=== PATIENT | female | born 1930 | race Caucasian/White ===

== ENCOUNTER 2019-01-23 18:13 | Observation (INO) | payer OTHER ==
[2019-01-23 18:32] VITALS: BMI 22.6
[2019-01-23 19:52] LABS: Absolute Lymphocytes (CBC) 1.2 K/uL (0.7-4.9); Basophils % 0.5 % (0-1.3); Hematocrit 35.5 % (36.0-45.0); Lymphocytes % 19.1 % (15.3-44.8); MPV 8.6 fL (7.6-11.3); RBC Red Blood Cell Count 3.88 M/uL (3.86-4.86)
[2019-01-23 20:16] LABS: ALT/SGPT 81 U/L (12-78); AST/SGOT 89 U/L (15-37); Albumin 3.5 g/dL (3.4-5.0); Alkaline Phosphatase 114 U/L (45-117); BUN Blood Urea Nitrogen 21 mg/dL (7-18); Bicarbonate 27 mmol/L (21-32); Bilirubin Total 0.5 mg/dL (0.2-1.0); CKMB Creatine Kinase MB 1.1 ng/mL (0.3-3.6); Creatine Phosphokinase 42 U/L (26-192); Glucose Level 101 mg/dL (74-106); Magnesium 1.9 mg/dL (1.8-2.4); Potassium 3.8 mmol/L (3.5-5.1); Sodium Level 140 mmol/L (136-145); Troponin I < 0.02 ng/mL (0.0-0.045)
--- NOTE | 2019-01-23 20:24 | RAD REPORT ---
EXAM DESCRIPTION: Margie Vargas (2 Views)01/23/2019 7:54 pm CLINICAL HISTORY: Chest pain COMPARISON: 2018 FINDINGS: The lungs appear clear of acute infiltrate. The heart is normal size IMPRESSION: No acute abnormalities displayed
[2019-01-23] MEDS ORDERED: ENOXAPARIN 30 MG/0.3 ML SQ ONE (21:49)
[2019-01-23] MEDS ORDERED: POTASSIUM CL SA 10 MEQ TAB PO ONE (22:00)
[2019-01-23] MEDS: NA CHLORIDE 0.9% 1,000 ML IV SCH (22:46)
--- NOTE | 2019-01-24 00:50 | HP ---
Date of Admission: 01/23/2019 Chief Complaint: Chest pain. History Of Present Illness: This is an 88-year-old female patient with history of coronary artery disease, was doing fine in her normal usual state of health until about a week ago, she started to have chest pain. It started in the left anterior chest region, in the precordial region and then subsequently also started to have pain in the similar area on the right side. Pain is more or less continuous, worse with deep breathing. Denies any fall or injury. No cough, cold, congestion. No expectoration. She reports having some shortness of breath with activity. No hemoptysis. No rash. After she came into office today, she was evaluated and admitted to the hospital for further evaluation for this problem. Allergies: NO KNOWN ALLERGIES. Medications: 1. Amlodipine 2.5 mg daily at bedtime. 2. Aspirin 81 mg daily. 3. Atorvastatin 40 mg, takes half a tablet by mouth daily. 4. Claritin 10 mg p.o. daily as needed for allergies. 5. Losartan 100 mg p.o. daily. 6. Omeprazole 40 mg p.o. daily as needed for heartburn and indigestion. 7. Prasugrel 10 mg 1 tablet p.o. daily. 8. Travatan eye drops. Review of Systems: Cardiovascular: As mentioned above. Musculoskeletal: Chronic back pain. All other systems reviewed and negative. Past Medical History: Significant for allergic rhinitis; hypothyroidism; hypertension; hyperlipidemia; coronary artery disease; gastroesophageal reflux disease; chronic kidney disease, stage 3; leg edema; osteoarthritis at multiple sites; chronic fatigue problem; anemia; thrombocytopenia. Cardiac cath done April 05, 2017 showed 90% stenosis of RCA and had angioplasty and stent placement at that time. Past Surgical History: Tonsillectomy; coronary artery stent placement, April 05, 2017; and hysterectomy. Family History: Significant for mother in motor vehicular accident. Father committed suicide. Brother had lung cancer. Sister had stomach wound. Social History: Prior history of smoking, not at present time. Use of alcohol negative. Physical Examination: Vital Signs: Blood pressure 123/76, pulse 88, respiratory rate 15, temperature 97.7, weight 114 pounds, oxygen saturation 92%. Height 58.5 inches. General: Awake, alert, oriented, not in distress. HEENT: Head atraumatic, normocephalic. Conjunctivae nonerythematous. Sclerae white. Mouth, no thrush or edema noted. Ears/Nose, no mass, lesion, discharge noted. Neck: Supple. No JVD, lymph nodes, bruit, thyromegaly noted. Lungs: Bilateral good equal air entry. Clear to auscultation. No rhonchi. No rales. Heart: Normal heart sounds, no murmur or gallop. Abdomen: Soft, bowel sounds normal. No guarding, rigidity, tenderness, mass, hepatosplenomegaly, distention, or bruit noted. Extremities: No leg edema. No calf tenderness. Skin: No rash, ulcer, cellulitis. Lymphatics: No lymph node enlargement in neck, supraclavicular, infraclavicular region. Neuro: No focal neurological deficit. Chest: Unremarkable. External Genitalia: Deferred. Rectal: Deferred. Back: Kyphosis. Diagnostic Data: Chest x-ray shows no acute cardiopulmonary changes. EKG shows no acute changes. WBC 6.3, hemoglobin 11.6, platelets 174. Sodium 140, potassium 3.8, chloride 108, bicarb 27, glucose 101, BUN 21, creatinine 1.39. D -dimer 3434. Troponin less than 0.02. Impression: 1. Chest pain. 2. Coronary artery disease. 3. Hypertension. 4. Hyperlipidemia. 5. Osteoarthritis, multiple sites. 6. Gastroesophageal reflux disease, chronic kidney disease, stage 3. 7. Anemia. 8. Thrombocytopenia. 9. Admit patient to hospital for further evaluation and management of this problem. Patient is appropriate for observation. We will admit her to telemetry. Will order venous doppler of legs and CT chest per PE protocol, start IVF. We will consult Cardiology and I will see her tomorrow morning for followup. FREDIS/MODL Voice ID: [id number] ELIF
[2019-01-24 00:56] LABS: Urine Appearance CLEAR; Urine Bilirubin NEGATIVE (NEG); Urine Blood 1+ (NEG); Urine Color YELLOW; Urine Glucose NEGATIVE (NEG); Urine Protein NEGATIVE (NEG); Urine Specific Gravity <=1.005 (1.005-1.030); Urine Urobilinogen 0.2 mg/dL (0.2-1.0); Urine pH 6.5 (5.0-7.0)
[2019-01-24 00:57] LABS: Urine Microscopic Reflex ORDER UMIC
[2019-01-24 02:01] LABS: Urine Bacteria <20 /HPF (<20); Urine Culture Reflex Order NOT NEEDED; Urine RBC <5 /HPF (NONE SEEN)
[2019-01-24 05:56] LABS: Potassium 3.8 mmol/L (3.5-5.1)
[2019-01-24] MEDS ORDERED: LORAZEPAM 0.5 MG TABLET PO ONE (07:28)
[2019-01-24] MEDS ORDERED: PNEUMOCOCCAL VACCINE 0.5 ML IMVAC ONE (08:00)
--- NOTE | 2019-01-24 08:07 | RAD REPORT ---
EXAM DESCRIPTION: USExtrem Venous W Compress Bil01/23/2019 10:40 pm CLINICAL HISTORY: Bilateral leg swelling COMPARISON: none FINDINGS: The common femoral, superficial femoral, popliteal and posterior tibial veins bilaterally are compressible and demonstrate augmentation. Doppler demonstrates good flow. IMPRESSION: No evidence of deep venous thrombosis involving either lower extremity.
[2019-01-24] MEDS ORDERED: POTASSIUM CL SA 10 MEQ TAB PO ONE (09:00)
--- NOTE | 2019-01-24 10:36 | RAD REPORT ---
EXAM DESCRIPTION: CT - Chest For Pe Angio - 01/24/2019 9:57 am CLINICAL HISTORY: rule out PE, left-sided chest pain with shortness of breath COMPARISON: Chest Pa And Lat (2 Views) dated 01/23/2019 TECHNIQUE: Dynamically enhanced 3 mm thick images of the chest were obtained during administration o f approximately 150mL Isovue 370 IV contrast. Coronal and oblique MIP reconstruction images were gene rated and reviewed. Exam utilizes a protocol to evaluate the pulmonary arterial tree. All CT scans are performed using dose optimization technique as appropriate and may include automated exposure control or mA/KV adjustment according to patient size. FINDINGS: No pulmonary emboli are identified. The aorta as imaged shows no acute or suspicious finding. No pericardial thickening or effusion. Ramona ent has an enlarged left atrium. No focal mass or consolidation. Patient has interstitial fibrotic change primarily subpleural in dist ribution. No endobronchial lesion or significant bronchial wall thickening. No pleural effusion or pl eural thickening. No mediastinal or hilar suspicious masses. No chest wall masses or abnormal axillary lymphadenopathy. Prominent thoracic spine degenerative changes are present. No acute findings seen. Kyphosis is presen t in the upper thoracic spine. IMPRESSION: No pulmonary emboli identified. Primarily subpleural interstitial fibrotic pattern with no acute lung parenchymal process identified. Minimal interstitial edema or infiltrate changes can be masked.
--- NOTE | 2019-01-24 14:01 | CON ---
Date of Consultation: 01/24/2019 History Of Present Illness: Ms. Ontiveros is 88, has had a history of hypertension, coronary artery disease, dyslipidemia, gastroesophageal reflux disease. Came in with about 2 weeks worth of chest pa in that is left-sided, worse when she touches it, moved to the right side of the chest about 2 days a go. Continue with no nausea, vomiting, diaphoresis, PND, orthopnea, pedal edema, palpitations, or sy ncope. She thinks that her pain gets worse when she breathes. She had a D-dimer of [address]34 yesterday. She refused a CT scan. Today, she is going to go have a CT scan after receiving some Ativan, which was agreed upon. Allergies: PENICILLIN. Medications: At home include Norvasc, Lipitor, Cozaar, metoprolol, Prilosec and Effient. Review of Systems: Negative. Social History: Negative. Family History: Noncontributory. Physical Examination: Vital Signs: Stable. She was afebrile. General: She was in no acute distress. Still complaining of fullness in the chest on the right uppe r chest. HEENT: Negative. Neck: Supple with no bruit. Chest: Clear to auscultation and percussion. Cardiac: Revealed a regular rhythm and rate with an aortic sclerosis, murmur. No gallops or rubs. Abdomen: Benign. Extremities: Revealed no clubbing, cyanosis, or edema. Diagnostic Data: All within normal limits except for a D-dimer of 3434. She had a RCA stent in 2018 . Impression And Plan: Atypical chest pain, may be musculoskeletal or pleuritic, elevated D-dimer. Pu lmonary embolus needs to be ruled out. I agree with her present regimen. CT angiogram is pending. We will see what that shows prior to making other decisions. Blood pressure and dyslipidemia and gas troesophageal reflux disease seem to be stable at this point. Her symptoms are very atypical from a coronary standpoint but I will discuss the case further with her and Dr. Bruno. If her CT angiogram i s negative, we can certainly consider a stress test in the near future if Ms. Ontiveros agrees to. ASHLEY/ZEENAT Voice ID: [id number] Report ID: [id number]
[2019-01-24] MEDS: NA CHLORIDE 0.9% 1,000 ML IV SCH (18:00)
[2019-01-24] MEDS ORDERED: HOME MED 1 EA UNK (Omeprazole [Prilosec] 40 MG) PO PRN (19:02)
[2019-01-24] MEDS ORDERED: HOME MED 1 EA UNK (Atorvastatin Calcium [Lipitor] 40 MG) PO SCH (21:00)
[2019-01-24] MEDS ORDERED: HOME MED 1 EA UNK (Losartan Potassium [Cozaar] 100 MG) PO SCH (21:00)
[2019-01-24] MEDS ORDERED: HOME MED 1 EA UNK (Travoprost (Benzalkonium) [Travatan 0.004% Eye Drop] 1 DROP) LEFT EYE SCH (21:00)
[2019-01-24] MEDS ORDERED: AMLODIPINE 2.5 MG PO SCH (21:00)
--- NOTE | 2019-01-24 23:52 | PN ---
Date of Progress Note: 01/24/2019 Subjective: The patient was seen this morning for followup, she was lying in bed. She still continu es to have intermittent chest pain as reported yesterday. No new complaints or problems reported ove rnight. Objective: Vital Signs: Reviewed. HEENT: Unremarkable. Lungs: Clear to auscultation. Heart: Heart sounds normal. Abdomen: Soft, bowel sounds normal. No guarding, rigidity, tenderness, or distention. Extremities: No leg edema. Laboratory Data: Chem-7 results from this morning reviewed. Venous Doppler of leg was negative for DVT, which was done last night. CAT scan of the chest per PE protocol was ordered last night, but th e patient refused it and after I talked to her this morning she was agreeable and she reported having claustrophobia so we actually ordered 1 dose of Ativan 0.5 mg to be given before CAT scan and this t est was done, today result came back negative for pulmonary embolism. Impression: 1.Chest pain. 2.Coronary artery disease. Plan: We will continue current medications. Home medications will be continued. Cardiology consult ation is appreciated and tomorrow we will do Lexiscan stress test. FREDIS/MODL Voice ID: [id number] Report ID: [id number]
[2019-01-25] MEDS: NA CHLORIDE 0.9% 1,000 ML IV SCH (00:40)
[2019-01-25 06:13] LABS: Potassium 4.4 mmol/L (3.5-5.1)
--- NOTE | 2019-01-25 07:59 | EKG ---
Test Date: 2019-01-23 Test Time: 21:52:38 Order Entry Technician: JENNIFER MEASUREMENT RESULTS: Intervals: Rate: 79 AR: 200 QRSD: 74 QT: 386 QTc: 442 [place]: P: 76 AR: 200 QRS: -18 T: 6 INTERPRETIVE STATEMENTS: Normal sinus rhythm Normal ECG Compared to ECG 04/03/2017 11:54:05 No significant changes Electronically Signed On 01-25-19 07:58:02 ASSURANCE ENGINEER by Allan Damon
[2019-01-25] MEDS ORDERED: REGADENOSON 0.4 MG/5 ML SYR IV ONE (08:05)
[2019-01-25] MEDS ORDERED: ASPIRIN 81 MG PO SCH (09:00)
[2019-01-25] MEDS ORDERED: PRASUGREL HYDROCHLORIDE 10 MG PO SCH (09:00)
--- NOTE | 2019-01-25 10:30 | TREADPHA ---
DX: CHEST PAIN Date of Study: 01/25/2019 Ht: 5 0 Wt: 116 lb 0 oz Consulting Physician: RADHA MEDICATIONS: HISTORY: 88 YEAR OLD FEMALE WITH COMPLAINTS OF CHEST PAIN. PHYSICIAL EXAMINATION: RESTING B.P.: 167/81 RESTING H.R.: 76 RESTING EKG: NORMAL PROTOCOL: PHARMACOLIGIC EXERCISE TIME: 3:30 B.P. AT PEAK STRESS: 171/78 IMPRESSION: LEXISCAN INJECTED, CARDIOLITE PER PROTOCOL. SEE NUCLEAR MEDICINE REPORT. NO SUPRAVENTRICULAR TACHYCARDIA. NO VENTRICULAR TACHYCARDIA. NO PREMATURE VENTRICULAR COMPLEXES. DENIED CHEST PAIN. NON-DIAGNOSTIC ELECTROCARDIOGRAM WITH LEXISCAN STRESS.
--- NOTE | 2019-01-25 10:30 | RAD REPORT ---
EXAM DESCRIPTION: NM - Rest Stress Cardiac Imaging - 01/25/2019 10:23 am CLINICAL HISTORY: Chest pain COMPARISON: None. TECHNIQUE: The patient was administered approximately 10 mCi of Tc 99m Sestamibi prior to resting SP ECT imaging of the heart. The patient was then administered approximately 30 mCi of Tc 99m Sestamibi following exercise or pharmacologic stress. Multiplanar SPECT images were reviewed. FINDINGS: The end diastolic volume is 51 ml, the end systolic volume is 14 ml, and the ejection frac tion is 72 %. No stress-induced ischemic changes confirmed on this study. No scarred myocardium identifiable. No pittman spicious finding seen. IMPRESSION: No stress induced ischemia or other suspicious findings. Ejection fraction and ventricular volumes are well within normal limits.
[2019-01-25 11:44] VITALS: O2SAT 96
[2019-01-25 14:06] VITALS: BP 139/64; TEMP 97.4
--- NOTE | 2019-01-26 18:08 | DS ---
Date of Discharge: 01/25/2019 Subjective: Patient was seen this morning for followup. No new complaints or problems reported by h er. Physical Examination: HEENT: Unremarkable. Lungs: Clear to auscultation. Heart: Sounds normal. Abdomen: Soft. Bowel sounds normal. No guarding, rigidity, tenderness, or distention. Extremities: No leg edema. Hospital Course: An 88-year-old female patient, who was admitted to the hospital with complaints of chest pain. Please see dictated H and P for more information. After patient was evaluated at office , she was admitted to the hospital. SD was ruled out with negative cardiac enzymes. EKG did not rayna w any acute changes. Chest x-ray was unremarkable. Her D-dimer was elevated at 3434. CBC, chemistr y otherwise was unremarkable. Venous Doppler of leg was negative for DVT and CT scan of the chest wa s negative for pulmonary embolism. Today, patient had Lexiscan stress test done, which was negative for any stress-induced ischemia. Cardiology consultation was obtained from Dr. Londono. After minal p was done, patient was discharged to go home in stable condition. Final Diagnoses: 1.Chest pain. 2.Coronary artery disease. 3.Hypertension. 4.Hyperlipidemia. 5.Osteoarthritis, multiple sites. 6.Gastroesophageal reflux disease. 7.Chronic kidney disease, stage 3. 8.Anemia. 9.Thrombocytopenia. Discharge Medications And Instructions: 1.Continue all prior home medications. 2.Follow up at my office next month. FREDIS/ZEENAT Voice ID: [id number] Report ID: [id number]
== END 2019-01-25 14:20 | disposition home or self-care (01) ==
LOC: 2ND 18:13 → 3RD 01-24 14:01 → 2ND 01-24 14:03
PROVIDERS: ADMIT Internal Medicine; ATTEND Internal Medicine
DX: R07.9 Chest pain, unspecified (principal); I25.10 Atherosclerotic heart disease of native coronary artery without angina pectoris; I12.9 Hypertensive chronic kidney disease with stage 1 through stage 4 chronic kidney disease, or unspecified chronic kidney disease; N18.3 Chronic kidney disease, stage 3 (moderate); E78.5 Hyperlipidemia, unspecified; M19.90 Unspecified osteoarthritis, unspecified site; K21.9 Gastro-esophageal reflux disease without esophagitis; D64.9 Anemia, unspecified; D69.6 Thrombocytopenia, unspecified; Z88.0 Allergy status to penicillin
CPT/HCPCS: 93005; 93017; 85025; 80048 ×2; 36415 ×2; 83735; 82550; 85379; 84443; 84484; 82553; 80053; 71275; 71046; 93970; 78452; J1650; J2785; J7030 ×2; A9500; G0379; G0378 ×4; 81003; 81015